=== PATIENT | male | born 1975 | race Caucasian/White ===

== ENCOUNTER 2020-06-27 10:25 | Outpatient (CLI) | payer MEDICAID, SELFPAY ==
--- NOTE | 2020-06-27 10:32 | CT_ITS ---
WS: [id number] CT NECK TECHNIQUE: Contrast-enhanced CT of the neck with coronal and sagittal reformatted images. CLINICAL INFORMATION: ENLARGED LYMPH NODES COMPARISON: None. DLP: 3350.[address] scans at [facility] use at least one of these dose optimization techniques: automat ed exposure control; mA and/or kV adjustment per patient size (includes targeted exams where dose is matched to clinical indication); or iterative reconstruction. FINDINGS: In the area of palpable concern in the right upper neck there is a well-circumscribed encapsulated li esteban posterior to the parotid tail and just anterior to the sternocleidomastoid measuring approximate ly 14.1 x 8.0 x 24 mm. Parotid glands are normal in appearance. Normal parapharyngeal fat. Submandibular glands are normal. Normal posterior nasopharynx and palatine tonsils. Thyroid gland is normal. No cervical lymphadenopat hy. No evidence of supraglottic or glottic mass. Normal vallecula and piriform sinuses. Subglottic ai rway is patent. Lung apices are well aerated. Partially visualized intracranial contents are normal. Incidental right middle cranial fossa arachnoid cyst measuring 1.6 x 3.3 cm x 2.4 anterior the right temporal lobe. Paranasal sinuses and mastoid air cells are well aerated. Mild spondylitic changes cer vical spine. IMPRESSION: 1. In the area of palpable concern, in the right upper neck is a benign well-circumscribed lipoma me asuring 14.0 x 8.0 x 24.0 mm. This has a benign appearance. 2. Salivary glands are normal in appearance. 3. No cervical lymphadenopathy. 4. No evidence of supraglottic or glottic mass. 5. Paranasal sinuses and mastoid air cells are well aerated. 6. Intracranial arachnoid cyst in the right middle cranial fossa described above measuring 1.6 x 3.3 x 2.4 CM. This can be further evaluated with noncontrast head CT for better anatomic detail. This is an incidental benign finding. 7. No other significant findings.
[2020-06-27] MEDS: iohexol 300 mg/mL 100 mL Btl IV (11:31)
== END 2020-06-27 10:26 | disposition home or self-care (01) ==
LOC: RADWPI 10:31
PROVIDERS: PCP Physician Assistant; Visit Provider Specialist
DX: R59.9 Enlarged lymph nodes, unspecified (principal); G93.0 Cerebral cysts
CPT/HCPCS: 70491; Q9967

== ENCOUNTER 2023-01-20 01:40 | Emergency (ER) | payer SELFPAY ==
--- NOTE | 2023-01-20 01:42 | XRR_ITS ---
PROCEDURE INFORMATION: Exam: XR Chest Exam date and time: 01/20/2023 3:08 AM Age: 47 years old Clinical indication: Right-sided; Patient HX: C/O RT sided chest pain. ; Additional info: Cp TECHNIQUE: Imaging protocol: Radiologic exam of the chest. Views: 1 view. COMPARISON: CT neck w con* [id number] 06/27/2020 11:22 AM FINDINGS: Lungs: No consolidation. Subtle left lung hazy ground-glass opacities. Pleural spaces: No pleural effusion. No pneumothorax. Heart/Mediastinum: The cardiac silhouette is at the upper limits of normal in size, this finding is likely at least partially related to lung volumes and technique. Bones/joints: No acute fracture. XR/XR chest 1V portable [id number] IMPRESSION: Subtle left lung hazy ground-glass opacities and mild prominence of the pulmonary vasculature. Findings are likely related to the technique and patient body habitus however other etiologies including early changes of fluid overload and/or CHF and mild evolving infectious and/or inflammatory process cannot be excluded. If there is continued clinical concern for pathology a repeat full upright PA and lateral radiographs of the chest are suggested for further evaluation.
[2023-01-20 01:47] VITALS: BP 168/84; PULSE 71; RESP 16; TEMP 37; O2SAT 98; BMI 34.3
--- NOTE | 2023-01-20 01:52 | ECG_ITS ---
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 Measurements Intervals [place] Rate: 70 P: 36 LA: 179 QRS: 38 QRSD: 120 T: 30 QT: 352 QTc: 382 Interpretive Statements SINUS RHYTHM RIGHT BUNDLE BRANCH BLOCK [120+ ms QRS DURATION, UPRIGHT V1, 40+ ms S IN I/aVL/V4/V5/V6] No previous ECG available for comparison Electronically Signed On 01-21-2023 1:13:21 CDT by Rebekah Mendoza M.D. [id number]
[2023-01-20 02:51] VITALS: BP 142/96; PULSE 67; RESP 16; O2SAT 98
[2023-01-20 02:54] LABS: Basophils % 0.3 %; Eosinophils # 0.1 10^3/uL (0.0-0.8); Eosinophils % 1.2 %; Hematocrit 53.1 % (42.0-52.0); Hemoglobin 17.4 g/dL (11.7-16.6); Lymphocytes # 1.7 10^3/uL (0.8-4.8); Lymphocytes % 14.7 %; Mean Corpuscular HGB Conc 32.8 g/dL (30.0-36.0); Mean Corpuscular Volume 94.5 fl (80-94); Mean Platelet Volume 10.6 fL (7.4-10.4); Monocytes # 1.2 10^3/uL (0.2-0.9); Neutrophils # 8.34 10^3/uL (1.8-7.7); Neutrophils % 72.9 %; Nucleated Red Blood Cells % 0 %; Platelet Count 216 10^3/cmm (130-400); Red Blood Count 5.62 10^6/uL (4.1-5.3); Red Cell Distribution Width 13.4 % (12.1-15.1); White Blood Count 11.5 10^3/uL (4.0-10.0)
--- NOTE | 2023-01-20 02:58 | ED_ITS ---
HPI - Chest Pain General: Chief Complaint: Chest Pain Stated Complaint: Chest pain Time Seen by Provider: 01/20/23 01:42 Source: patient Mode of arrival: ambulatory Limitations: no limitations History of Present Illness: 47-year-old male states he had right-sided chest pain throughout the day today. He states started this morning. He states he had been working on a lawnmower and down on the ground and using his arms a lot he states pain is very sharp in nature its in his right chest is worse with palpation. States it is improved with rest he denies any nausea denies any shortness of breath he denies any vomiting or diarrhea. Associated symptoms: Deny abdominal pain, dyspnea, fever(s), nausea or vomiting Review of Systems Const: Denies: fever(s) or chills ENMT: Denies: throat pain or dental pain Card: Reports: chest pain Resp: Denies: dyspnea GI: Denies: abdominal pain, nausea, vomiting or diarrhea : Denies: dysuria Musc: Denies: neck pain or back pain Skin/Breast: Denies: rash Neuro: Denies: headache(s) PFSH ED PFSH: Social History (Updated 01/20/23 @ 02:59 by J Luis Archer MD) Substance/Drug Use: never Physical Exam Const: COMMON NORMALS: no acute distress, patient oriented x3 and healthy appearing HENMT: COMMON NORMALS: normocephalic and atraumatic HEAD & SCALP: normocephalic and atraumatic Neck/C-Spine: COMMON NORMALS: full ROM and supple Chest: COMMONS NORMALS: normal inspection of the chest OTHER: point tender of right chest reproduce pain Resp: COMMON NORMALS: normal respiratory effort, No retractions, No use of accessory muscles and clear to auscultation bilaterally AUSCULTATION: clear to auscultation bilaterally Cardio: COMMON NORMALS: regular rate, regular rhythm and No murmurs present (Cardio) RATE: regular rate RHYTHM: regular rhythm GI: COMMON NORMALS: Normal to inspection, nondistended, normoactive bowel sounds present, Soft to palpation, non-tender and no masses PALPATION: Yes Soft to palpation Extremity: COMMON NORMALS: normal to inspection and full ROM Neuro: COMMON NORMALS: patient oriented x3, moves all extremities and no focal motor deficits Psych: COMMON NORMALS: mental status grossly normal, Normal thought process present and cooperative THOUGHT PROCESS: Normal thought process present Skin: COMMON NORMALS: no rashes or lesions noted and no wounds GENERAL SKIN EXAM: no rashes or lesions noted Course Vital Signs: Vital signs: Vital Signs Temperature 98.6 F 01/20/23 01:47 Pulse Rate 61 01/20/23 03:28 Respiratory Rate 18 01/20/23 03:01 Blood Pressure 146/96 01/20/23 03:28 Pulse Oximetry 94 01/20/23 03:28 Oxygen Delivery Me thod Room Air 01/20/23 03:28 MDM - Chest Pain Medical Decision Making Patient presented there chest pain is likely chest wall pain he is point tender on exam. Troponin EKG x-ray here are all normal no signs of acute coronary syndrome he is stable for discharge we will place him on Naprosyn he is to follow-up his PCP and return if worsening. Medical Records I reviewed the patient's medical records. Lab Data I reviewed the patient's lab results. 01/20/23 02:50 01/20/23 02:50 Laboratory Results WBC 11.5 10^3/uL (4.0-10.0) H 01/20/23 02:50 RBC 5.62 10^6/uL (4.1-5.3) H 01/20/23 02:50 Hgb 17.4 g/dL (11.7-16.6) H 01/20/23 02:50 Hct 53.1 % (42.0-52.0) H 01/20/23 02:50 MCV 94.5 fl (80-94) H 01/20/23 02:50 MCH 31.0 pg (28.0-34.0) 01/20/23 02:50 MCHC 32.8 g/dL (30.0-36.0) 01/20/23 02:50 RDW 13.4 % (12.1-15.1) 01/20/23 02:50 Plt Count 216 10^3/cmm (130-400) 01/20/23 02:50 MPV 10.6 fL (7.4-10.4) H 01/20/23 02:50 Neut % (Auto) 72.9 % 01/20/23 02:50 Lymph % (Auto) 14.7 % 01/20/23 02:50 [place] % (Auto) 10.0 % 01/20/23 02:50 Eos % (Auto) 1.2 % 01/20/23 02:50 Baso % (Auto) 0.3 % 01/20/23 02:50 Neut # (Auto) 8.34 10^3/uL (1.8-7.7) H 01/20/23 02:50 Lymph # (Auto) 1.7 10^3/uL (0.8-4.8) 01/20/23 02:50 [place] # (Auto) 1.2 10^3/uL (0.2-0.9) H 01/20/23 02:50 Eos # (Auto) 0.1 10^3/uL (0.0-0.8) 01/20/23 02:50 Baso # (Auto) 0.0 10^3/uL (0.0-0.1) 01/20/23 02:50 Nucleated RBC % (auto) 0 % 01/20/23 02:50 Nucleated RBCs # 0.0 /100WBC 01/20/23 02:50 PT 12.70 SECONDS (12.1-14.9) 01/20/23 02:50 INR 0.93 (0.8-1.2) 01/20/23 02:50 Sodium 135 mmol/L (136-145) L 01/20/23 02:50 Potassium 4.4 mmol/L (3.5-5.1) 01/20/23 02:50 Chloride 99 mmol/L (98-107) 01/20/23 02:50 Carbon Dioxide 24 mmol/L (22-29) 01/20/23 02:50 Anion Gap 16.4 (5-19) 01/20/23 02:50 BUN 13 mg/dL (6-20) 01/20/23 02:50 Creatinine 0.9 mg/dL (0.7-1.2) 01/20/23 02:50 GFR Calculation 91.3 mL/min (90-130) 01/20/23 02:50 Glucose 101 mg/dL (65-115) 01/20/23 02:50 Calculated Osmolality 280 mOsm/kg (285-295) L 01/20/23 02:50 Calcium 9.7 mg/dL (8.5-10.5) 01/20/23 02:50 Total Bilirubin 0.3 mg/dL (0.15-1.2) 01/20/23 02:50 AST 14 U/L (0-40) 01/20/23 02:50 ALT 22 U/L (0-41) 01/20/23 02:50 Alkaline Phosphatase 82 U/L (40-130) 01/20/23 02:50 Troponin T Baseline 6 ng/L (0-15) 01/20/23 02:50 Total Protein 7.7 g/dL (6.6-8.7) 01/20/23 02:50 Albumin 4.5 g/dL (3.5-5.2) 01/20/23 02:50 Globulin 3.2 g/dL (1.3-4.6) 01/20/23 02:50 Lipase 26 U/L (13-60) 01/20/23 02:50 EKG Data EKG 1: I personally reviewed and interpreted this EKG as follows: EKG interpretation date: 01/20/23 EKG interpretation time: 01:52 Interpretation: nsr hr [address] or t wave abnormalities qrs 120 qtc 373 Discharge Plan Discharge Patient Disposition: Home Clinical Impression: Chest pain Prescriptions: New Naprosyn 500 mg tablet 500 mg PO BID PRN (Reason: pain) Qty: 20 0RF Discharge Orders: Discharge ED (Routine); Ordered 01/20/23 Ordered By: J Luis Archer Referrals: Amirah Hall PA [Primary Care Provider] - 1-3 days Discharge Diet: Advance as tolerated Discharge Activity: Resume usual activity Patient Instructions: Chest Wall Pain (ED) Coding Level of Care Code ED [place] for Chg Rui
[2023-01-20 03:01] VITALS: RESP 18
[2023-01-20] MEDS: ondansetron 2 mg/ML SDV 2 mL 4 MG IVP (03:01)
[2023-01-20] MEDS: morphine 4 mg/mL SDV 1 mL IVP (03:01)
[2023-01-20 03:12] LABS: INR 0.93 (0.8-1.2)
[2023-01-20 03:20] LABS: Troponin(5th) Baseline 6 ng/L (0-15)
[2023-01-20 03:23] LABS: Lipase 26 U/L (13-60)
[2023-01-20 03:28] VITALS: BP 146/96; PULSE 61; O2SAT 94
[2023-01-20 03:36] LABS: Alanine Aminotransferase 22 U/L (0-41); Albumin Level 4.5 g/dL (3.5-5.2); Alkaline Phosphatase 82 U/L (40-130); Anion Gap 16.4 (5-19); Aspartate Amino Transferase 14 U/L (0-40); Blood Urea Nitrogen 13 mg/dL (6-20); Calcium 9.7 mg/dL (8.5-10.5); Carbon Dioxide 24 mmol/L (22-29); Chloride 99 mmol/L (98-107); Globulin 3.2 g/dL (1.3-4.6); Glomerular Filtration Rate 91.3 mL/min (90-130); Glucose 101 mg/dL (65-115); Osmolality Calculated 280 mOsm/kg (285-295); Potassium 4.4 mmol/L (3.5-5.1); Sodium 135 mmol/L (136-145); Total Bilirubin 0.3 mg/dL (0.15-1.2); Total Protein 7.7 g/dL (6.6-8.7)
[2023-01-20 03:55] VITALS: BP 145/87; PULSE 60; RESP 18; O2SAT 94
== END 2023-01-20 04:00 | disposition home or self-care (01) ==
PROVIDERS: Emergency Provider Emergency Medicine; PCP Physician Assistant
DX: R07.9 Chest pain, unspecified (principal)
CPT/HCPCS: 71045; 80053; 83690; 84484; 85025; 85610; 93005; 96374; 96375; 99285; J2270; J2405